=== PATIENT | male | born 1990 | race Caucasian/White ===

== ENCOUNTER 2025-07-23 10:10 | Outpatient (OUT) | payer BC, SELFPAY ==
--- OUTSIDE RECORDS SUMMARY | 2020-12-07 09:50 | XMS_ITS | Continuity of Care Document ---
Author Organization [facility] rtment Address [address] [place] [address] Phone Care Team Providers Care Television Antenna Installer Name Role Phone Mor Yeager MD Unavailable Unavailable Procedures Procedure Date PFIZER SARSCOV2 VACCINE .3ML ADMN PFIZER SARSCOV2 .3ML 2ND DOSE PFIZER SARSCOV2 VACCINE .3ML ADMN PFIZER SARSCOV2 .3ML 1ST DOSE Advance Directives Directive Yes / No Effective Date File Name No Information Encounters Encounter Description Practice Location Reason(s) For Visit Diagnoses Date Provider Providers Copied on Encounter [facility] , [address] [place], [place], [id number], tel:[phone] [facility] Dept Immunization No Information [address] [employer] [address] [place], [place], [id number] , . tel:[phone] [facility] , [address], [place], [id number], tel:[phone] [facility] Dept Immunization No Information [address] [employer] [address], [place], [id number] , . tel:[phone] Family History Family Member Type Diagnosis Age At Onset No Information Immunizations Vaccine Date Status Comments Pfizer BioNTech Covid administered Not e: TPVALL ; Source: New Immunization Record Pfizer-BioNTech Covid administered Not e: TPVALL ; Source: New Immunization Record Payers Payer name Insurance type Covered constitution party ID Authoriza tion(s) No Information Social History Type Description Quantity Date Captured Comments Sex Male Smoking Status No Information Chief Complaint And Reason For Visit No Information Reason For Referral Reason For Referral No Information History Of Present Illness Encounter Date Complaint History Of Prese nt Illness No Information Functional Status Date Functional Assessmen t No Information Instructions Date Instruction Additional Infor mation No Information Assessments Type Assessment Date No Information Patient Care Teams Name Effective Dates (start - stop) Status Members No Information
--- NOTE | 2025-07-23 10:45 | XR_ITS ---
The [address] [address] Patient Name: PHONG AGUILERA MRN: [id number] date: 1990 Sex: M Assigned Patient Location: [facility] Current Patient Location: [facility] Accession/Order Number: [id number] Exam Date: 07/23/2025 10:40 Report Date: 07/23/2025 10:57 At the request of: RAMÓN DEJESUS MD Procedure: XR chest 2V PA AND LATERAL CHEST: CLINICAL HISTORY: Preoperative clearance. Tobacco use. COMPARISON: None There is no focal parenchymal consolidation, effusion or pneumothorax. The cardiac, hilar and mediastinal silhouettes are within normal limits. There is no vascular congestion. The visualized bony thorax is intact. XR/XR chest 2V IMPRESSION: NO ACUTE CARDIOPULMONARY ABNORMALITY. Impression dictated by: Marcelina Bliss M.D. 07/23/2025 10:57 AM Dictation Location: [place] [address] Electronically authenticated by: [id number] Y Date: 07/23/2025 10:57
--- NOTE | 2025-07-23 10:48 | PM.PRESUREVA ---
History of Present Illness History of Present Illness Chief complaint: sterilization with right hydrocele Narrative: Patient presents for presurgical testing. The patient states he was evaluated by urology for a vasectomy and a hydrocele was also discovered. The patient states he has mild discomfort from the hydrocele. He denies any urinary complaints, fever, dysuria, hematuria, or any other complaints. Review of Systems ROS Narrative REVIEW OF SYSTEMS: Negative except as stated in HPI, ten or more systems reviewed. Constitutional: No fever, chills, weakness ENT: No sore throat or epistaxis Cardiovascular: No edema, chest pain, palpitations, or activity intolerance Respiratory: No shortness of breath, cough, or wheezing Musculoskeletal: No joint pain or swelling Gastrointestinal: No abdominal pain, constipation, diarrhea, or vomiting Genitourinary: No dysuria or hematuria Neurological: No numbness, tingling, weakness, or headache Psychiatric: No mood changes [facility] Medical History (Updated 07/23/25 @ 10:46 by Brigida Castaneda NP) Elevated blood pressure reading without diagnosis of hypertension ?R03.0 - Elevated blood-pressure reading, without diagnosis of hypertension (ICD-10) Seasonal allergies ?J30.2 - Other seasonal allergic rhinitis (ICD-10) GERD (gastroesophageal reflux disease) ?K21.9 - Gastro-esophageal reflux disease without esophagitis (ICD-10) Request for sterilization ?Z30.2 - Encounter for sterilization (ICD-10) Hydrocele ?N43.3 - Hydrocele, unspecified (ICD-10) Family History (Updated 07/23/25 @ 10:30 by Brigida Castaneda NP) Other Family history of breast cancer Family history of heart disease Family history of hypertension Family history of stroke Social History (Updated 07/23/25 @ 10:27 by Brigida Castaneda NP) Within the past year, how often did you have a drink containing alcohol: 4 or more times a week Within the past year, how many standard drinks containing alcohol did you have on a typical day: 3 or 4 Do you use any of these nicotine containing products: vaping products Non-prescribed substance use: denies use Previous occupational history: [employer] Highest level of school completed/degree received: some college, no degree Meds Home Medications and Allergies Home Medications ?Medication ?Instructions ?Recorded ?Confirmed ?Type loratadine 10 mg tablet (Claritin) 10 mg PO DAILY 07/23/25 07/23/25 History phenylpropanolamine-GG 25 mg-200 2 tab PO BID 07/23/25 07/23/25 History mg tablet semaglutide (weight loss) 1 mg/0.5 1 mg subcut Q7D 07/23/25 07/23/25 History mL subcutaneous pen injector Allergies Allergy/AdvReac Type Severity Reaction Status Date / Time No Known Drug Allergies Allergy Verified 07/23/25 10:24 Exam Narrative Exam Narrative: Constitutional: Awake, alert, comfortable, well-appearing, nontoxic, interactive, vital signs as charted Head: Normocephalic, atraumatic Neck: Supple, normal appearance, normal range of motion, no meningeal signs, no lymphadenopathy Respiratory: No respiratory distress, breath sounds clear Cardiovascular: Regular rate and rhythm, strong and regular heart tones Abdomen: Nontender, normal bowel sounds, soft, no CVA tenderness Musculoskeletal: Normal gait, no swelling or edema Skin: No rashes or induration, no lesions, only visible skin inspected Neuro: No neurological deficits, normal sensation Psychiatric: Oriented ?3, normal affect Assessment and Plan Assessment and Plan (1) Hydrocele: (2) Request for sterilization: Plan Right hydrocelectomy and vasectomy scheduled with Dr. Puente July 31, 2025.
[2025-07-23 11:00] LABS: Hematocrit 45.0 % (42.0-54.0); Hemoglobin 15.4 g/dL (14.0-18.0); Immature Granulocytes Abs Auto 0.03 10^3/uL (0.00-0.03); Immature Granulocytes Pct Auto 0.4 % (0.0-0.5); Lymphocytes Absolute Auto 1.7 10^3/uL (1.2-3.8); Mean Corpuscular HGB Conc 34.2 g/dL (29.9-35.2); Mean Corpuscular Hemoglobin 29.7 pg (25.9-34.0); Mean Corpuscular Volume 86.7 fL (80.0-94.0); Platelet Count 315 10^3/uL (150-450); Red Blood Count 5.19 10^6/uL (4.70-6.10); White Blood Count 7.4 10^3/uL (4.0-11.0)
[2025-07-23 11:26] LABS: Anion Gap 13.6; Blood Urea Nitrogen 8.0 mg/dL (7.0-18.0); Calcium 9.6 mg/dL (8.5-10.1); Carbon Dioxide 27.4 mmol/L (21.0-32.0); Chloride 103 mmol/L (98-107); Estimated GFR (African America >60 (>=60 mL/min/1.73m^2); Estimated GFR (Non-African Ame >60 (>=60 mL/min/1.73m^2); Glucose 112 mg/dL (74-106); Potassium 4.0 mmol/L (3.5-5.1); Sodium 140 mmol/L (136-145)
[2025-07-23 11:31] LABS: INR 1.04; Partial Thromboplastin Time 30.7 sec (22.3-36.2); Prothrombin Time 10.9 sec (9.0-11.6)
== END 2025-07-23 10:11 | disposition home or self-care (01) ==
LOC: PST 10:11
PROVIDERS: PCP Student in an Organized Health Care Education/Training Program; Visit Provider Urology
DX: Z01.810 Encounter for preprocedural cardiovascular examination (principal); Z01.812 Encounter for preprocedural laboratory examination; Z01.818 Encounter for other preprocedural examination; N43.3 Hydrocele, unspecified
CPT/HCPCS: 36415; 71046; 80048; 85025; 85610; 85730; G0463

== ENCOUNTER 2025-07-31 08:23 | Day surgery (SDC) | payer BC, SELFPAY ==
[2025-07-23 10:43] VITALS: BP 151/95; PULSE 79; TEMP 36.4; O2SAT 99; BMI 31.3
[2025-07-31] VITALS (11 sets, daily range): BP systolic 120–163; BP diastolic 81–99; PULSE 70–102; TEMP 36.4–36.8; O2SAT 96–99; BMI 31.6
[2025-07-31] MEDS: CEFAZOLIN SODIUM 2 GM/50 ML D5W PREMIX IV (09:34)
[2025-07-31] MEDS: MINERAL OIL LIGHT STERILE 10 ML VIAL TOPICAL (09:54)
[2025-07-31] MEDS: BACITRACIN OINTMENT 28.4 GM TUBE 1 APPLIC TOPICAL (09:55)
--- NOTE | 2025-07-31 12:10 | PM.URSON ---
Urology Surgery Operative Note Operative Note Procedure Date: 07/31/25 Time Out Performed: yes Pre-op Diagnosis: 1. [place] male. 2. Right hydrocele Post-op Diagnosis: same as pre-op Procedures performed: 1. Bilateral segmental vas ectomy. 2. Right hydrocelectomy Anesthesia: ANGELA Primary Surgeon: Noble Puente Complications: None Estimated blood loss (mL): 10 Findings: 1. Posterior vasa. 2. Extremely thick, indurated, inflamed and friable hydrocele sac. Obliterated lower epididymis. Scrotal norris adhered to inferior tunica vaginalis. 3. 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 Specimens: 1. Bilateral vasa segments. 2. Right hydrocele sac. Indications for Procedures: This gentleman is desirous for sterilization. He also has a large right hydrocele that he is desirous to get surgically corrected. He has signed an informed consent for bilateral segmental vasectomy and right hydrocelectomy. Some of these risks include bleeding, infection, anesthesia, recurrence of hydrocele, and chronic testicular pain to name a few. Detailed description of Procedure: The patient was brought to the operating room and placed on the operating room table in the supine position. Timeout was done by all parties in the room. We all agreed upon the patient's identification and the planned procedures for this patient. General endotracheal anesthesia was then administered. The genitalia were sterilely prepped and draped in the usual fashion. I started on the left hemiscrotal side. I palpated the vas which was very posteriorly located. I then made a small nedra in the scrotal skin over the vas and then bluntly dissected to it with a hemostat. The ring forceps were then used to grasp the vas. I then bluntly dissected a loop of vasa out. Each end was clamped with a hemostat. The loop was transected with a scalpel and this was sent for permanent sections. The ends of the vasa were then coagulated with the Bovie cautery. Each end was tied with a 2-0 Vicryl tie. The proximal end was then everted upon itself so as to prevent recanalization. Once perfect hemostasis was verified the ends were then allowed to fall back into the hemiscrotum. 4-0 Vicryl was used in an interrupted fashion to close the skin. Our attention was then turned to the right side. I made a transverse right hemiscrotal incision with a 15 blade scalpel. Sharp dissection was carried down to the right hydrocele. I then sharply and bluntly freed up the right hemiscrotal contents from the scrotum and delivered it out of the testicle. It was very difficult to get down to the hydrocele sac due to significant induration and friability of the tissues. The cord was freed up and I then palpated the vas and bluntly dissected down to it. The ring forceps was used to grasp the vas. A small loop of vas was dissected out clamped and transected similarly to the other side. Each end was also cauterized and tied. I then everted the proximal end upon itself in a similar manner. These ends were then allowed to fall back into the spermatic cord. Once I arrived at the sac it was very abnormal. The sac was very atypical. It was extremely thick. It was extremely friable and indurated. Dissection was very difficult due to the nature of the tissues. Eventually, I was able to get to an area that was amenable to transection and entering into the sac. This was done anteriorly. I then aspirated straw-colored fluid approximately 150 to 200 cc. I then opened the sac in the cephalad and caudad direction. The epididymis was obliterated inferiorly. This extremely thick redundant portion of the sac was then excised circumferentially anteriorly and sent for permanent sections. Copious amounts of cautery was required because all the edges were oozing. Nevertheless, circumferential cautery was done to obtain hemostasis. On the inferior aspect of the sac anteriorly, there was an embedded 1 cm scrotal norris. This was unroofed and drained. At this time I then irrigated the hemiscrotum and the testicle and spermatic cord. Tiny bleeders were coagulated with the needle tip Bovie cautery. At this time we then replaced the testicle and spermatic cord into the right hemiscrotum in the correct anatomic orientation. The dartos layer was closed with 3-0 Vicryl in a running fashion. The skin was closed with 4-0 Vicryl in a running fashion. Bacitracin ointment was applied over the skin. Fluffs were applied as well as a scrotal support. The anesthetic was then reversed. He was then transferred to [place] and wheeled to PACU in stable condition.
--- NOTE | 2025-07-31 13:51 | PC.NURSE ---
1345: pt voids without difficulty.
== END 2025-07-31 13:55 | disposition home or self-care (01) ==
PROVIDERS: PCP Student in an Organized Health Care Education/Training Program; Visit Provider Urology
PROC: (CPT 921; principal; 2025-07-31 09:30)
PROC: (CPT 921; 2025-07-31 09:30)
DX: Z30.2 Encounter for sterilization (principal); N43.3 Hydrocele, unspecified; F17.290 Nicotine dependence, other tobacco product, uncomplicated; I10 Essential (primary) hypertension; K21.9 Gastro-esophageal reflux disease without esophagitis
CPT/HCPCS: 55040; 55250; 36415; 88302; 88304; J0690; J1100; J1885; J2250; J2405; J2704; J3010